=== PATIENT | female | born 1985 | race Caucasian/White ===

== ENCOUNTER → 2019-01-20 | Outpatient (CLI) | payer BC ==
--- NOTE | 2019-01-20 15:27 | US ---
EXAM DESCRIPTION: Breast,Left: Ultrasound CLINICAL HISTORY: 33 yearsFemaleLEFT BREAST MASS AT NIPPLE . The lungs is palpable and there is brown low-density liquid drainage from the left nipple. Mother with breast cancer at age 56. Lifetime risk of developing breast cancer (Tyrer-Cuzick model)(%): Not calculated due to patient age under 35. COMPARISON: None. TECHNIQUE: Left breastTranscutaneous scanning utilizing cullen-scale and Doppler modes. Scanning performed by the procedure tech ; observation by Dr. Isidro. FINDINGS: Ultrasound: Scanning in the retroareolar left breast. Heterogeneous fatty and fibroglandular tissues. Shadowing associated with the left nipple. Lesion is palpable at the 1:00-2:00 region. Circumscribed inhomogeneous hypoechoic mass with wider than tall orientation with posterior acoustic shadowing. Minimal central vascularity. Dimensions are 8.9 x 9.0 mm. This mass is more hypoechoic than the nipple. No distinct fluid collection or cyst. No large calcifications. IMPRESSION: Differential includes fibroadenoma, skin gland, complicated cyst, lymph node, or obstructed duct. BI-RADS CATEGORY: 3 - PROBABLY BENIGN. Management: Short interval (6-month) ultrasound left breast.. The FINDINGS and the FOLLOW-UP plan were reviewed by Dr. Isidro during video conference with the patient after the examination. Written communication explaining the IMPRESSION and FOLLOW-UP will be mailed to the patient and referring care provider Electronically signed by: Nikita Isidro MD 01/20/2019 3:26 PM [facility]
== END ==
LOC: US 08:38
PROVIDERS: ATTEND Family Medicine
DX: N63.42 Unspecified lump in left breast, subareolar (principal)